=== PATIENT | male | born 1935 | race Caucasian/White ===

== ENCOUNTER 2022-09-22 17:44 | Observation (INO) ==
--- NOTE | 2022-09-22 18:59 | Emergency Department Note ---
Impression & Plan Acute lower GI bleeding, Anemia ED Provider Note NAME: TOMAS STAPLES AGE: 87 SEX: M : 1935 ARRIVES VIA: Walk-In INFORMANT: Patient, ED PROVIDER(S): Stefan Mackenzie DO CHIEF COMPLAINT: Rectal bleeding HPI: The patient is an 87-year-old male who presented to the emergency department for rectal bleeding. He describes his rectal bleeding is grossly bloody and watery. He has had no fever. He denies having any nausea or v omiting. He does complain of some vague abdominal pain. The patient has a history of no previous episodes in the past. He does not take blood thinners. He has had no recent trauma or traveling. The patient states he has been compliant with his outpatient medications. He is traveling from outside the area and has not recently been seen by his family doctor. ROS: See above HPI for pertinent positives & negatives. A total of 10 systems reviewed and were otherwise negative. PAST MEDICAL HISTORY: See Below PAST SURGICAL HISTORY: See Below FAMILY HISTORY: See Below SOCIAL HISTORY: See Below HOME MEDICATIONS: See Below ALLERGIES: See Below VITALS: See Below PHYSICAL EXAMINATION: GENERAL: Patient is awake alert in no acute distress patient is resting comfortably and showing no signs of anxiety EYES: The conjunctivae are clear. The pupils are round and reactive. EARS, NOSE, MOUTH AND THROAT: The nose is without any evidence of any deformity. Mucous membranes are moist. Tongue is midline. NECK: The neck is nontender and supple. RESPIRATORY: Normal respiratory effort is noted there is no evidence of wheezing rhonchi or rales CARDIOVASCULAR: Regular rate and rhythm noted there no murmurs rubs or gallops normal S1 normal S2. GASTROINTESTINAL: The abdomen is soft. Abdomen is nontender. MUSCULOSKELETAL/EXTREMITIES: There is no evidence of gross deformity full range of motion is noted in the hips and shoulders. SKIN: There is no obvious evidence of any rash. There are no petechiae, pallor or cyanosis noted. NEUROLOGIC: Patient is awake alert and oriented x3 MEDICAL DECISION MAKING: The patient is an 87-year-old male who presented to the emergency department for an evaluation of lower GI bleeding. The patient was noted to have loose bowel movements which had gross blood per rectum. I discussed patient's laboratory and radiographic studies with him. Ultimately his stool was positive for E. coli. [facility] have agreed to evaluate the patient in the emergency department for further management and disposition. Triage Nursing notes reviewed. Prior medical records reviewed Vital Signs: reviewed and remarkable for no significant abnormalities Differential diagnosis: Diverticulosis, AVM, coagulopathy, colitis, inflammatory bowel disease, malignancy, Susan-Underwood tear, esophagitis, peptic ulcer disease, variceal bleed, gastritis, epistaxis, fissure, hemorrhoids, as well as other pathologies. ER treatment provided: See below Diagnostics interpreted by me: ECG: EKG was obtained in the emergency department. My interpretation is normal sinus rhythm at 69 bpm. No PVCs were noted. Right bundle-branch block pattern was noted. No previous tracing was available. Cardiac Monitoring: An order was placed for continuous cardiac monitoring. The monitor shows a rate of 78 bpm with sinus rhythm Laboratory studies: As stated above and show below. Imaging studies: See below Consultation(s): I discussed this case with Dr. Boland who is [facility]. Past Med/Surg History Medical History High cholesterol PVCs (premature ventricular contractions) Social History Smoking Status: Former smoker Second Hand Exposure: No; Do You Dip or Chew Tobacco: No; Tobacco Cessation Education Requested by Patient: No Hx Alcohol Use: No Hx Substance Use: No Preferred Language: Kittitian Surgical Supervisor Required: No Beliefs That Will Affect Care: None Current Living Situation: Alone Other Information That Helps Us Care for You: No Feels Safe at Home: Yes Safety Concerns: Feels Safe At This Time Assistive Devices: Other Assistive Devices Comment: partial Allergies Allergies Allergy/AdvReac Type Severity Reaction Status Date / Time No Known Allergies Allergy Unverified 09/22/22 21:26 Home Meds Home Medications Medication Instructions Recorded Confirmed ascorbic acid (vitamin C) 500 mg 500 mg PO DAILY 09/22/22 09/22/22 tablet aspirin 325 mg tablet 325 mg PO DAILY 09/22/22 09/22/22 atorvastatin 40 mg tablet 40 mg PO DAILY 09/22/22 09/22/22 metoprolol succinate 25 mg 25 mg PO DAILY 09/22/22 09/22/22 tablet,extended release 24 hr multivitamin 1 tab PO DAILY 09/22/22 09/22/22 omega 1-wcd-otc-fish oil 1,000 mg 1 cap PO DAILY 09/22/22 09/22/22 (120 mg-180 mg) capsule (Fish Oil) Results & Data (ED) Vital Signs Vital Signs - 24 hr 09/22/22 17:55 09/22/22 18:18 09/22/22 18:31 Temperature 36.6 C Temperature Source Temporal Artery Scan Pulse Rate 87 Pulse Rate [Finger] 67 Respiratory Rate 18 18 Blood Pressure 124/87 Blood Pressure [Left Arm] 142/78 H Blood Pressure Mean 99 Blood Pressure Mean [Left Arm] 99 Pulse Oximetry 97 97 99 Oxygen Delivery Method Room Air Room Air Sepsis Recent Fever Within 48 Hours No Sepsis New/Unexplained Change in Mental Status No Sepsis Action Taken by Nursing No Action Required 09/22/22 19:52 09/22/22 21:00 Temperature Temperature Source Pulse Rate Pulse Rate [Finger] 66 66 Respiratory Rate 18 20 Blood Pressure Blood Pressure [Left Arm] 130/77 114/72 Blood Pressure Mean Blood Pressure Mean [Left Arm] 94 86 Pulse Oximetry 96 96 Oxygen Delivery Method Room Air Room Air Sepsis Recent Fever Within 48 Hours Sepsis New/Unexplained Change in Mental Status Sepsis Action Taken by Usp Medications Current Medication List: was personally reviewed by me Laboratory Data Attestation: I reviewed the patient's lab results. Result diagrams: 09/22/22 16:09 09/22/22 16:09 Lab Results 09/22/22 09/22/22 09/22/22 Range/Units 16:09 16:09 16:09 WBC 12.17 H (4.8-10.8) K/ul RBC 3.54 L (4.63-6.08) M/uL Hgb 11.6 L (14.0-18.0) g/dl Hct 33.8 L (40.1-51.0) % MCV 95.5 (80.0-100.0) fL MCH 32.8 (25.0-34.0) pg MCHC 34.3 (32.0-36.0) g/dL RDW Std Deviation 46.0 (36.4-46.3) fL RDW Coeff of Bonifacio 13.2 (11.5-14.5) % Plt Count 298 (130-400) K/uL MPV 10.7 (9.4-12.4) fL Immature Gran % (Auto) 0.3 % Neut % (Auto) 69.8 % Lymph % (Auto) 18.1 % [place] % (Auto) 9.4 % Eos % (Auto) 1.8 % Baso % (Auto) 0.6 % Neut # (Auto) 8.50 H (1.4-6.5) K/uL Lymph # (Auto) 2.20 (1.2-3.4) K/uL [place] # (Auto) 1.14 H (0.24-0.82) K/uL Eos # (Auto) 0.22 (0-0.50) K/uL Baso # (Auto) 0.07 (0-0.2) K/uL Immature Gran # (Auto) 0.04 H (0.00-0.02) K/uL PT 11.0 (9.0-12.0) Seconds INR 1.0 (0.9-1.1) APTT 25.4 (21.0-31.0) Seconds PTT Ratio 0.9 Sodium 142 (136-145) mmol/L Potassium 4.0 (3.5-5.1) mmol/L Chloride 107 (98-107) mmol/L Carbon Dioxide 27 (21-32) mmol/L Anion Gap 8 (3-11) BUN 20 (6-23) mg/dl Creatinine 1.06 (0.6-1.4) mg/dl Est Cr Clr Drug Dosing 47.2 ml/min Est GFR ( Amer) 71.8 ml/min Est GFR (Non-Af Amer) 61.9 ml/min BUN/Creatinine Ratio 18.9 (10-20) Glucose 96 (70-99(Fasting)) mg/dl Calcium 9.7 (8.5-10.1) mg/dl Total Bilirubin 0.5 (0.2-1.0) mg/dl AST 13 (13-39) U/L ALT 10 (7-52) U/L Alkaline Phosphatase 89 (34-104) U/L Troponin I High Sens 11.7 (0-20) pg/ml Total Protein 6.8 (6.0-8.3) gm/dl Albumin 4.2 (3.4-5.0) gm/dl Globulin 2.6 (2.5-4.0) gm/dl Albumin/Globulin Ratio 1.6 (0.9-2) Lipase 14 (11-82) U/L Urine Color Urine Appearance (Clear) Urine pH (4.5-7.5) Ur Specific Apex (1.000-1.030) Urine Protein (Negative) Urine Glucose (UA) (Negative) Urine Ketones (Negative) Urine Blood (Negative) Urine Nitrite (Negative) Urine Bilirubin (Negative) Urine Urobilinogen (Negative) Ur Leukocyte Esterase (Negative) Urine WBC (Auto) (0-5) /hpf Urine RBC (Auto) (0-4) /hpf U Hyaline Cast (Auto) (0-5) /lpf U Epithel Cells (Auto) (0-5) /lpf Urine Bacteria (Auto) (Negative) Stl C. cayetanensis PCR (NotDetected) Stool Rotavirus A PCR (NotDetected) Stl Adenov F 40/41 PCR (NotDetected) Stool Astrovirus (PCR) (NotDetected) Stool Campylobacter PCR (NotDetected) Stl C. diff Tox A/B PCR (NotDetected) Stool Cryptosporidium PCR (NotDetected) Stl E.coli Shiga Tox PCR (NotDetected) Stl Enterotoxigenic E PCR (NotDetected) Stool EPEC (PCR) (NotDetected) Stool EAEC (PCR) (NotDetected) Stl E. histolytica PCR (NotDetected) Stool Giardia Lamblia PCR (NotDetected) Stool Salmonella PCR (NotDetected) Stool Sapovirus (PCR) (NotDetected) Stl P. shigelloides PCR (NotDetected) Stl Shigella/EIEC PCR (NotDetected) St Y.enterocolitica PCR (NotDetected) Stool Vibrio (PCR) (NotDetected) Stl Vibrio cholerae PCR (NotDetected) Stl Norovirus GI/GII PCR (NotDetected) SARS-CoV-2, RNA, NAAT (NEGATIVE) Blood Type Antibody Screen 09/22/22 09/22/22 09/22/22 Range/Units 18:16 18:18 18:18 WBC (4.8-10.8) K/ul RBC (4.63-6.08) M/uL Hgb (14.0-18.0) g/dl Hct (40.1-51.0) % MCV (80.0-100.0) fL MCH (25.0-34.0) pg MCHC (32.0-36.0) g/dL RDW Std Deviation (36.4-46.3) fL RDW Coeff of Bonifacio (11.5-14.5) % Plt Count (130-400) K/uL MPV (9.4-12.4) fL Immature Gran % (Auto) % Neut % (Auto) % Lymph % (Auto) % [place] % (Auto) % Eos % (Auto) % Baso % (Auto) % Neut # (Auto) (1.4-6.5) K/uL Lymph # (Auto) (1.2-3.4) K/uL [place] # (Auto) (0.24-0.82) K/uL Eos # (Auto) (0-0.50) K/uL Baso # (Auto) (0-0.2) K/uL Immature Gran # (Auto) (0.00-0.02) K/uL PT (9.0-12.0) Seconds INR (0.9-1.1) APTT (21.0-31.0) Seconds PTT Ratio Sodium (136-145) mmol/L Potassium (3.5-5.1) mmol/L Chloride (98-107) mmol/L Carbon Dioxide (21-32) mmol/L Anion Gap (3-11) BUN (6-23) mg/dl Creatinine (0.6-1.4) mg/dl Est Cr Clr Drug Dosing ml/min Est GFR ( Amer) ml/min Est GFR (Non-Af Amer) ml/min BUN/Creatinine Ratio (10-20) Glucose (70-99(Fasting)) mg/dl Calcium (8.5-10.1) mg/dl Total Bilirubin (0.2-1.0) mg/dl AST (13-39) U/L ALT (7-52) U/L Alkaline Phosphatase (34-104) U/L Troponin I High Sens (0-20) pg/ml Total Protein (6.0-8.3) gm/dl Albumin (3.4-5.0) gm/dl Globulin (2.5-4.0) gm/dl Albumin/Globulin Ratio (0.9-2) Lipase (11-82) U/L Urine Color Yellow Urine Appearance Clear (Clear) Urine pH 5.0 (4.5-7.5) Ur Specific Apex 1.021 (1.000-1.030) Urine Protein Negative (Negative) Urine Glucose (UA) Negative (Negative) Urine Ketones Trace H (Negative) Urine Blood Negative (Negative) Urine Nitrite Negative (Negative) Urine Bilirubin Negative (Negative) Urine Urobilinogen Negative (Negative) Ur Leukocyte Esterase 1+ H (Negative) Urine WBC (Auto) 5-10 H (0-5) /hpf Urine RBC (Auto) 0-4 (0-4) /hpf U Hyaline Cast (Auto) 1-5 (0-5) /lpf U Epithel Cells (Auto) 20-30 H (0-5) /lpf Urine Bacteria (Auto) Negative (Negative) Stl C. cayetanensis PCR Not Detected (NotDetected) Stool Rotavirus A PCR Not Detected (NotDetected) Stl Adenov F 40/41 PCR Not Detected (NotDetected) Stool Astrovirus (PCR) Not Detected (NotDetected) Stool Campylobacter PCR Not Detected (NotDetected) Stl C. diff Tox A/B PCR Not Detected (NotDetected) Stool Cryptosporidium PCR Not Detected (NotDetected) Stl E.coli Shiga Tox PCR Not Detected (NotDetected) Stl Enterotoxigenic E PCR Not Detected (NotDetected) Stool EPEC (PCR) DETECTED A* (NotDetected) Stool EAEC (PCR) Not Detected (NotDetected) Stl E. histolytica PCR Not Detected (NotDetected) Stool Giardia Lamblia PCR Not Detected (NotDetected) Stool Salmonella PCR Not Detected (NotDetected) Stool Sapovirus (PCR) Not Detected (NotDetected) Stl P. shigelloides PCR Not Detected (NotDetected) Stl Shigella/EIEC PCR Not Detected (NotDetected) St Y.enterocolitica PCR Not Detected (NotDetected) Stool Vibrio (PCR) Not Detected (NotDetected) Stl Vibrio cholerae PCR Not Detected (NotDetected) Stl Norovirus GI/GII PCR Not Detected (NotDetected) SARS-CoV-2, RNA, NAAT (NEGATIVE) Blood Type O Positive Antibody Screen NEGATIVE 09/22/22 Range/Units 18:37 WBC (4.8-10.8) K/ul RBC (4.63-6.08) M/uL Hgb (14.0-18.0) g/dl Hct (40.1-51.0) % MCV (80.0-100.0) fL MCH (25.0-34.0) pg MCHC (32.0-36.0) g/dL RDW Std Deviation (36.4-46.3) fL RDW Coeff of Bonifacio (11.5-14.5) % Plt Count (130-400) K/uL MPV (9.4-12.4) fL Immature Gran % (Auto) % Neut % (Auto) % Lymph % (Auto) % [place] % (Auto) % Eos % (Auto) % Baso % (Auto) % Neut # (Auto) (1.4-6.5) K/uL Lymph # (Auto) (1.2-3.4) K/uL [place] # (Auto) (0.24-0.82) K/uL Eos # (Auto) (0-0.50) K/uL Baso # (Auto) (0-0.2) K/uL Immature Gran # (Auto) (0.00-0.02) K/uL PT (9.0-12.0) Seconds INR (0.9-1.1) APTT (21.0-31.0) Seconds PTT Ratio Sodium (136-145) mmol/L Potassium (3.5-5.1) mmol/L Chloride (98-107) mmol/L Carbon Dioxide (21-32) mmol/L Anion Gap (3-11) BUN (6-23) mg/dl Creatinine (0.6-1.4) mg/dl Est Cr Clr Drug Dosing ml/min Est GFR ( Amer) ml/min Est GFR (Non-Af Amer) ml/min BUN/Creatinine Ratio (10-20) Glucose (70-99(Fasting)) mg/dl Calcium (8.5-10.1) mg/dl Total Bilirubin (0.2-1.0) mg/dl AST (13-39) U/L ALT (7-52) U/L Alkaline Phosphatase (34-104) U/L Troponin I High Sens (0-20) pg/ml Total Protein (6.0-8.3) gm/dl Albumin (3.4-5.0) gm/dl Globulin (2.5-4.0) gm/dl Albumin/Globulin Ratio (0.9-2) Lipase (11-82) U/L Urine Color Urine Appearance (Clear) Urine pH (4.5-7.5) Ur Specific Apex (1.000-1.030) Urine Protein (Negative) Urine Glucose (UA) (Negative) Urine Ketones (Negative) Urine Blood (Negative) Urine Nitrite (Negative) Urine Bilirubin (Negative) Urine Urobilinogen (Negative) Ur Leukocyte Esterase (Negative) Urine WBC (Auto) (0-5) /hpf Urine RBC (Auto) (0-4) /hpf U Hyaline Cast (Auto) (0-5) /lpf U Epithel Cells (Auto) (0-5) /lpf Urine Bacteria (Auto) (Negative) Stl C. cayetanensis PCR (NotDetected) Stool Rotavirus A PCR (NotDetected) Stl Adenov F 40/41 PCR (NotDetected) Stool Astrovirus (PCR) (NotDetected) Stool Campylobacter PCR (NotDetected) Stl C. diff Tox A/B PCR (NotDetected) Stool Cryptosporidium PCR (NotDetected) Stl E.coli Shiga Tox PCR (NotDetected) Stl Enterotoxigenic E PCR (NotDetected) Stool EPEC (PCR) (NotDetected) Stool EAEC (PCR) (NotDetected) Stl E. histolytica PCR (NotDetected) Stool Giardia Lamblia PCR (NotDetected) Stool Salmonella PCR (NotDetected) Stool Sapovirus (PCR) (NotDetected) Stl P. shigelloides PCR (NotDetected) Stl Shigella/EIEC PCR (NotDetected) St Y.enterocolitica PCR (NotDetected) Stool Vibrio (PCR) (NotDetected) Stl Vibrio cholerae PCR (NotDetected) Stl Norovirus GI/GII PCR (NotDetected) SARS-CoV-2, RNA, NAAT NEGATIVE (NEGATIVE) Blood Type Antibody Screen Administered Medications Dextrose/Sodium Chloride (D5w And 1/2nss) 1,000 mls @ 100 mls/hr IV .Q10H DAVIE Stop: 10/22/22 23:08 Last Admin: 09/22/22 23:42 Dose: 100 mls/hr Documented By: JEANETTE Discontinued Medications Azithromycin (Azithromycin 250 Mg Tab) 500 mg PO NOW ONE Stop: 09/22/22 23:10 Last Admin: 09/22/22 23:42 Dose: 500 mg Documented By: JEANETTE Imaging Data Radiologist's Impression: Chest X-Ray 09/22/22 18:05 XR chest 1V portable CLINICAL HISTORY: GIB TECHNIQUE: Single frontal radiograph of the chest was obtained. Comparison: None available at the time of this dictation. FINDINGS: Median sternotomy wires are unchanged. Calcified aortic knob is seen. Mediastinal and hilar densities are seen representing calcified lymph nodes. Bronchial wall thickening is noted. No evidence of pleural effusion or pneumothorax. IMPRESSION: Bronchial wall thickening is seen which may represent bronchitis. No pneumonia or other acute abnormalities. ACT 112: Negative or not required by law. Electronically signed by: Naif White M.D. 09/22/2022 8:11 PM Discharge Plan Visit Data Chief Complaint: Rectal Bleed Stated Complaint: RECTAL BLEED ED Provider: Stefan Mackenzie Discharge Problem: Acute lower GI bleeding, Anemia Patient Disposition: Admitted As Inpatient Discharge Instructions Interventions: ED Discharge Assessment Last Done: 09/22/22 22:37 : Anemia Qualifiers: Anemia type: unspecified type Qualified Code(s): D64.9 - Anemia, unspecified
[2022-09-22 19:11] LABS: Basophils # (auto) 0.07 K/uL (0-0.2); Basophils % (auto) 0.6 %; Eosinophils # (auto) 0.22 K/uL (0-0.50); Eosinophils % (auto) 1.8 %; Hematocrit (blood only) 33.8 % (40.1-51.0); Hemoglobin 11.6 g/dl (14.0-18.0); Immature Granulocytes # (auto) 0.04 K/uL (0.00-0.02); Immature Granulocytes % (auto) 0.3 %; Lymphocytes % (auto) 18.1 %; Mean Corpuscular Hemoglobin 32.8 pg (25.0-34.0); Mean Corpuscular Hgb Conc 34.3 g/dL (32.0-36.0); Mean Corpuscular Volume 95.5 fL (80.0-100.0); Mean Platelet Volume 10.7 fL (9.4-12.4); Monocytes # (auto) 1.14 K/uL (0.24-0.82); Monocytes % (auto) 9.4 %; Neutrophils % (auto) 69.8 %; Platelet Count 298 K/uL (130-400); RDW Coefficient of Variation 13.2 % (11.5-14.5); Red Blood Count 3.54 M/uL (4.63-6.08); White Blood Count 12.17 K/ul (4.8-10.8)
[2022-09-22 19:14] LABS: Appearance Urine Clear (Clear); Bacteria Urine Automated Negative (Negative); Bilirubin Urine Negative (Negative); Blood Urine Negative (Negative); Color Urine Yellow; Epithelial Cell Urine Auto 20-30 /lpf (0-5); Glucose Urine UA Negative (Negative); Ketones Urine Trace (Negative); Leukocyte Esterase Urine 1+ (Negative); Nitrite Urine Negative (Negative); Protein Urine Negative (Negative); RBC Urine Automated 0-4 /hpf (0-4); Specific Gravity Urine 1.021 (1.000-1.030); Urobilinogen Urine Negative (Negative)
[2022-09-22 19:23] LABS: Partial Thromboplastin Ratio 0.9; Partial Thromboplastin Time 25.4 Seconds (21.0-31.0)
[2022-09-22 19:41] LABS: Troponin I High Sensitivity 11.7 pg/ml (0-20)
[2022-09-22 19:42] LABS: Albumin Globulin Ratio 1.6 (0.9-2); Albumin Level 4.2 gm/dl (3.4-5.0); BUN Creatinine Ratio 18.9 (10-20); Bilirubin,Total 0.5 mg/dl (0.2-1.0); Calcium 9.7 mg/dl (8.5-10.1); Creatinine Clr Calc Pharmacy 47.2 ml/min; Est GFR (African American) 71.8 ml/min; Est GFR (Non-African American) 61.9 ml/min; Globulin 2.6 gm/dl (2.5-4.0); Total Protein 6.8 gm/dl (6.0-8.3)
--- NOTE | 2022-09-22 20:13 | XRay Report ---
XR chest 1V portable CLINICAL HISTORY: GIB TECHNIQUE: Single frontal radiograph of the chest was obtained. Comparison: None available at the time of this dictation. FINDINGS: Median sternotomy wires are unchanged. Calcified aortic knob is seen. Mediastinal and hilar densities are seen representing calcified lymph nodes. Bronchial wall thickening is noted. No evidence of pleu ral effusion or pneumothorax. IMPRESSION: Bronchial wall thickening is seen which may represent bronchitis. No pneumonia or other acute abnorma lities. ACT 112: Negative or not required by law. Electronically signed by: Naif White M.D. 09/22/2022 8:11 PM
[2022-09-22 20:29] LABS: Adenovirus F 40/41 PCR Not Detected (NotDetected); Astrovirus PCR Not Detected (NotDetected); Campylobacter PCR Not Detected (NotDetected); Clostridium diff Toxin A/B PCR Not Detected (NotDetected); Cryptosporidium PCR Not Detected (NotDetected); Cyclospora cayetanensis PCR Not Detected (NotDetected); Entamoeba histolytica PCR Not Detected (NotDetected); Enteroaggregative E.coli(EAEC) Not Detected (NotDetected); Enterotoxigenic E.coli (ETEC) Not Detected (NotDetected); Giardia lamblia PCR Not Detected (NotDetected); Norovirus GI/GII PCR Not Detected (NotDetected); Plesiomonas shigelloides PCR Not Detected (NotDetected); Rotavirus A PCR Not Detected (NotDetected); Salmonella PCR Not Detected (NotDetected); Sapovirus PCR Not Detected (NotDetected); Shiga-like Toxin E.coli (STEC) Not Detected (NotDetected); Shigella/Enteroinvasive E.coli Not Detected (NotDetected); Vibrio cholerae PCR Not Detected (NotDetected); Vibrio species PCR Not Detected (NotDetected); Yersinia enterocolitica PCR Not Detected (NotDetected)
[2022-09-22 20:35] LABS: Enteropathogenic E.coli (EPEC) DETECTED (NotDetected)
[2022-09-22] MEDS ORDERED: ACETAMINOPHEN 325 MG TAB PO PRN (23:09)
[2022-09-22] MEDS ORDERED: NITROGLYCERIN SL 0.4 MG/TAB TAB SL PRN (23:09)
[2022-09-22] MEDS ORDERED: AZITHROMYCIN 250 MG TAB PO ONE (23:09)
[2022-09-22] MEDS: D5W AND 1/2NSS 1,000 ML IV SCH (23:42)
--- NOTE | 2022-09-22 23:53 | History and Physical Report ---
DATE OF ADMISSION: 09/22/2022. CHIEF COMPLAINT: Rectal bleed and diarrhea. HISTORY OF PRESENT ILLNESS: An 87-year-old male with past medical history significant for hypertension, hyperlipidemia, history of status post bioprosthetic aortic valve replacement, presents with rectal bleed. 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 He had so far four bloody bowel movements. No abdominal pain. Does not feel dizzy. No nausea, no vomiting, no fevers. Currently, resting comfortably, hemodynamically stable. No chest pain, no shortness of breath, no cough, no runny nose. Some scratchy throat. No headache, no blurred visions, no nausea. Somewhat hard of hearing. ALLERGIES: No known drug allergies. PAST MEDICAL HISTORY: As mentioned above. PAST SURGICAL HISTORY: Bioprosthetic aortic valve replacement. MEDICATIONS: The patient is on vitamin C 500 mg p.o. daily, aspirin 325 mg p.o. daily, atorvastatin 40 mg p.o. daily, metoprolol succinate 25 mg p.o. daily, multivitamins 1 tablet p.o. daily, fish oil 1 capsule p.o. daily. FAMILY HISTORY: Father when patient is of 10yrs probably from heart disease; mother had severe arthritis. SOCIAL HISTORY: No smoking. No alcohol. REVIEW OF SYSTEMS: As per HPI. Rest of the review of systems is negative. PHYSICAL EXAMINATION: GENERAL: The patient is of moderate build, not in acute distress. VITAL SIGNS: Temperature 36.6, pulse 66, respiratory rate 20, blood pressure 114/72, oxygen 96% on room air. HEENT: Pupils equal, round and reactive to light. Oral mucosa moist. NECK: No JVD, no neck masses. CARDIOVASCULAR: S1 and S2 heard. Regular rate and rhythm. No murmur, no gallop. RESPIRATORY SYSTEM: Normal AP diameter. No accessory muscle use. No wheezing, no crackles. ABDOMEN: Soft, bowel sounds present, nontender, no distention. CENTRAL NERVOUS SYSTEM: Cranial nerves II-XII grossly intact, nonfocal. EXTREMITIES: No edema, no erythema. LABORATORY DATA: WBC 12.1, hemoglobin 11.6, hematocrit 33.8, platelets 298. PT 11, INR 1, APTT 25.4. Sodium 142, potassium 4, chloride 107, bicarbonate 27, BUN 20, creatinine 1.06, serum glucose 96, calcium 9.7, total bilirubin 0.5, AST 13, ALT 10, alkaline phosphatase 89. Troponin I high sensitivity 11.7. Lipase 14. Urinalysis, +1 leukocyte esterase, urine bacteria negative. Stool sample, stool EPIC PCR came back positive. COVID negative. IMAGING DATA: Chest x-ray, bronchial wall thickening seen, which may represent bronchitis. No pneumonia or other abnormalities seen. EKG: Normal sinus rhythm, right bundle-branch block at a rate of 69, no previous EKGs available. ASSESSMENT AND PLAN: This is an 87-year-old male who presents with rectal bleed. 1. Rectal bleed and diarrhea: Four episodes of bloody diarrhea, blood in the stools. From the [place] area, he ate food from a restaurant yesterday. Stool PCR positive for enteropathogenic E. coli. Since he is having bloody diarrhea, we can treat with antibiotics. will treat with azithromycin 500 mg for 3 days. Will follow hemoglobin and hematocrit. GI consulted. Monitor in the [employer] tele. On IV fluids. Will keep him n.p.o. now. Blood consent obtained. Hold his aspirin. 2. History of hyperlipidemia: Continue statin. 3. History of status post bioprosthetic aortic valve. 4. History of hypertension: Continue metoprolol. 5. UTI? Follow cx. 6. Deep venous thrombosis prophylaxis: Sequential compression devices. DISPOSITION: Closely monitor in [facility]. PT/OT prior to discharge. Social service to help with discharge planning. Level 1 full code. Job ID: [id number] [facility]
[2022-09-23 06:50] LABS: Basophils # (auto) 0.04 K/uL (0-0.2); Basophils % (auto) 0.6 %; Eosinophils # (auto) 0.25 K/uL (0-0.50); Eosinophils % (auto) 3.5 %; Hematocrit (blood only) 26.4 % (40.1-51.0); Hematocrit (blood only) 26.5 % (40.1-51.0); Hemoglobin 8.9 g/dl (14.0-18.0); Immature Granulocytes # (auto) 0.01 K/uL (0.00-0.02); Immature Granulocytes % (auto) 0.1 %; Lymphocytes # (auto) 1.14 K/uL (1.2-3.4); Lymphocytes % (auto) 16.1 %; Mean Corpuscular Hemoglobin 31.6 pg (25.0-34.0); Mean Corpuscular Hgb Conc 33.6 g/dL (32.0-36.0); Mean Platelet Volume 10.8 fL (9.4-12.4); Monocytes # (auto) 0.71 K/uL (0.24-0.82); Neutrophils # (auto) 4.93 K/uL (1.4-6.5); Neutrophils % (auto) 69.7 %; Platelet Count 235 K/uL (130-400); RDW Coefficient of Variation 13.2 % (11.5-14.5); RDW Standard Deviation 45.4 fL (36.4-46.3); Red Blood Count 2.82 M/uL (4.63-6.08); White Blood Count 7.08 K/ul (4.8-10.8)
[2022-09-23 07:16] LABS: Calcium 8.5 mg/dl (8.5-10.1); Creatinine Clr Calc Pharmacy 48.5 ml/min; Est GFR (Non-African American) 66.4 ml/min; Magnesium 1.9 mg/dl (1.7-2.4); Potassium 3.8 mmol/L (3.5-5.1)
[2022-09-23] MEDS: MULTIVITAMIN TAB PO SCH (07:54)
[2022-09-23] MEDS: ASCORBIC ACID 500 MG TAB PO SCH (07:54)
[2022-09-23] MEDS: ATORVASTATIN 40 MG TAB PO SCH (07:55)
[2022-09-23] MEDS: METOPROLOL SUCC 25MG EXT REL TAB PO SCH (07:55)
[2022-09-23] MEDS: D5W AND 1/2NSS 1,000 ML IV SCH (08:46)
--- NOTE | 2022-09-23 11:06 | Gastrointestinal Consultation ---
Date of Consultation September 23, 2022 Assessment & Plan (1) Acute lower GI bleeding: Most likely diverticular bleed. It seems to have stopped. Plan Clear liquids p.o. May advance after lunchtime if no further bleeding. Suggest observing overnight. If no further bleeding, then would not go forward with inpatient colonoscopy. Instead patient will follow up with his GI in the [facility] Supervising Physician Co-Signing Physician Notes Attending attestation I have seen, examined this patient, and agree with the findings and above by our mid-level provider LIZET Mccollum, with the following additions: Discussed colonoscopy, he does not wish to pursue. Would like to go home, negotiated to stay for observation and f/u with care team close to home History of similar presentation with diverticular etiology No signs of acute ongoing bleeding VSS History of Present Illness Reason for Consultation: Rectal bleeding Requesting Physician: Dr. Boland Attending Physician: Cheryl Tierney MD History of Present Illness Mr. Johnnie Davila is an 87 yr old male w a hx of HTN, hyperlipidemia, biosporsthetic aortic valve replacement. He lives in the [facility] and was visiting friends in [place] when he experienced sudden onset of painless rectal bleeding last evening. He believes he passed one very bloody dark red bowel movement prior to arrival here and then 3 in the emergency department and 1 on arrival up in the ICU. He has since then passed gas and not had any bleeding with it. On arrival, hemoglobin 11 then this morning 8.9. He denies any nausea vomiting abdominal pain dizziness weakness fevers chills sweats. He is hemodynamically stable, awake and alert and actually asks if he can go home today. Allergies Allergy/AdvReac Type Severity Reaction Status Date / Time No Known Allergies Allergy Unverified 09/22/22 21:26 Home Medications Medication Instructions Recorded Confirmed Type ascorbic acid (vitamin C) 500 mg 500 mg PO DAILY 09/22/22 09/22/22 History tablet aspirin 325 mg tablet 325 mg PO DAILY 09/22/22 09/22/22 History atorvastatin 40 mg tablet 40 mg PO DAILY 09/22/22 09/22/22 History metoprolol succinate 25 mg 25 mg PO DAILY 09/22/22 09/22/22 History tablet,extended release 24 hr multivitamin 1 tab PO DAILY 09/22/22 09/22/22 History omega 4-wka-kdn-fish oil 1,000 mg 1 cap PO DAILY 09/22/22 09/22/22 History (120 mg-180 mg) capsule (Fish Oil) Patient History Medical History High cholesterol PVCs (premature ventricular contractions) Social History Smoking Status: Former smoker Second Hand Exposure: No; Do You Dip or Chew Tobacco: No; Tobacco Cessation Education Requested by Patient: No Hx Alcohol Use: No Hx Substance Use: No Preferred Language: Tajik Chef Saucier Required: No Beliefs That Will Affect Care: None Current Living Situation: Alone Other Information That Helps Us Care for You: No Feels Safe at Home: Yes Safety Concerns: Feels Safe At This Time Assistive Devices: Other Assistive Devices Comment: partial Review of Systems Review of Systems: ROS: Gen: Denies weakness, fevers, weight loss Eyes: No eye redness, or pain, no recent vision changes Resp: No SOB, no cough Cardio: No palpitations/irregular beats, no chest pain GI: As per HPI : Denies pain on urination Skin: No jaundice, itching or new rashes Physical Exam Constitutional: WD/WN, vitals as above Eyes: PERRL, conjunctivae normal, anicteric sclerae ENMT: external ear and nose normal, oropharynx normal Neck: trachea midline, no thyromegaly Respiratory: normal respiratory effort, lungs clear to auscultation Cardiovascular: Rate/Rhythm: regular rate and regular rhythm Heart Sounds: + murmur (2/6 systolic) Gastrointestinal (Abdomen): normal bowel sounds, soft, nontender, no hepatosplenomegaly Musculoskeletal: no cyanosis or clubbing, extremities motor strength 5/5 Skin: no rashes, warm and dry Neurologic: PERRL, EOMI, accommodation nl, no face palsy, no dysarthria Psychiatric: A+Ox3, euthymic affect Results & Data ([facility]) Vital Signs (Past 12 Hours) Vital Signs Temp Pulse Pulse Resp BP Pulse Ox O2 Del Method 09/23/22 09:31 106 H 09/23/22 07:25 36.6 C 64 19 108/60 93 Room Air 09/23/22 03:40 36.6 C 67 18 100/53 L 96 Room Air 09/22/22 23:15 77 09/22/22 23:11 36.5 C 78 17 129/59 L 97 Room Air Laboratory Results WBC 7, Hb 8.9, HCT 26.5, PLT S2 35, INR 1.0, NA 142, K3.8, CL 28, CO2 5, BUN 20, CR 1, glucose 117 Diagnostic Findings CXR bronchial wall thickening, no pneumonia
--- NOTE | 2022-09-23 11:11 | Electrocardiogram Report ---
Test Reason : Blood Pressure : / mmHG Vent. Rate : 069 BPM Atrial Rate : 069 BPM P-R Int : 208 ms QRS Dur : 134 ms QT Int : 442 ms P-R-T Axes : 095 -14 057 degrees QTc Int : 473 ms Normal sinus rhythm with 1st degree AV block Right bundle branch block Abnormal ECG No previous ECGs available Confirmed by Hai Kendall ([id number]) on 09/23/2022 11:10:26 AM Referred By: REFERRED SELF Confirmed By:Xander Kendall
--- NOTE | 2022-09-23 11:15 | Hospitalist Progress Note ---
Date of Service September 23, 2022 Assessment & Plan (1) Acute lower GI bleeding: (2) Anemia: Plan: Patient presented with acute onset rectal bleeding. Had prior to presentation, 3 in the ER. Hemoglobin dropped from 11.6-8.9. Monitor hemoglobin. GI evaluation noted. Continue Plavix for now. If no bleeding may advance diet later in the day and observe overnight. If more bleeding, will consider inpatient colonoscopy. Patient reports history of diverticulitis in the past. Cannot rule out diverticular bleeding. Stool PCR was positive for enteropathogenic E. coli. Currently on azithromycin. Hold home aspirin at this time. Admission and Anticipated Discharge Date Admission Date: September 22, 2022 Subjective Patient seen and examined. Reports bowel movement this morning was pinkish Last bloody BM were yesterday Denied any abdominal pain, nausea, vomiting Denied any fevers, chills Denied any dizziness, palpitation Denied any cough, chest pain, shortness of breath Denied any dysuria, frequency or urgency or hematuria Physical Exam Constitutional: + well hydrated; no acute distress Eyes: PERRL, conjunctivae normal, anicteric sclerae ENMT: external ear and nose normal, oropharynx normal Respiratory: normal respiratory effort, lungs clear to auscultation Cardiovascular: Rate/Rhythm: regular rate and regular rhythm S1-S2 Gastrointestinal (Abdomen): normal bowel sounds, soft, nontender, no hepatosplenomegaly Musculoskeletal: no cyanosis or clubbing, extremities motor strength 5/5 Neurologic: PERRL, EOMI, accommodation nl, no face palsy, no dysarthria Psychiatric: A+Ox3, euthymic affect Results & Data Results & Data ([facility]) Vital Signs (Past 12 Hours) Vital Signs Temp Pulse Pulse Resp BP Pulse Ox O2 Del Method 09/23/22 09:31 106 H 09/23/22 07:25 36.6 C 64 19 108/60 93 Room Air 09/23/22 03:40 36.6 C 67 18 100/53 L 96 Room Air (1) Anemia Anemia type: unspecified type Qualified Code(s): D64.9 - Anemia, unspecified
[2022-09-23 11:55] LABS: Hematocrit (blood only) 26.7 % (40.1-51.0)
[2022-09-23 16:59] LABS: Hematocrit (blood only) 27.8 % (40.1-51.0); Hemoglobin 9.4 g/dl (14.0-18.0)
[2022-09-23] MEDS ORDERED: AZITHROMYCIN 250 MG TAB PO SCH (21:00)
[2022-09-24 06:36] LABS: Hematocrit (blood only) 25.8 % (40.1-51.0); Hemoglobin 8.6 g/dl (14.0-18.0); Mean Corpuscular Hemoglobin 32.1 pg (25.0-34.0); Mean Corpuscular Hgb Conc 33.3 g/dL (32.0-36.0); Mean Corpuscular Volume 96.3 fL (80.0-100.0); Platelet Count 244 K/uL (130-400); RDW Coefficient of Variation 13.3 % (11.5-14.5); RDW Standard Deviation 47.1 fL (36.4-46.3); Red Blood Count 2.68 M/uL (4.63-6.08); White Blood Count 8.42 K/ul (4.8-10.8)
[2022-09-24 07:19] LABS: BUN Creatinine Ratio 19.3 (10-20); Calcium 8.7 mg/dl (8.5-10.1); Creatinine Clr Calc Pharmacy 45.7 ml/min; Est GFR (African American) 69.4 ml/min; Est GFR (Non-African American) 59.9 ml/min; Potassium 4.2 mmol/L (3.5-5.1)
[2022-09-24] MEDS: MULTIVITAMIN TAB PO SCH (07:54)
[2022-09-24] MEDS: ASCORBIC ACID 500 MG TAB PO SCH (07:54)
[2022-09-24] MEDS: ATORVASTATIN 40 MG TAB PO SCH (07:54)
[2022-09-24] MEDS: METOPROLOL SUCC 25MG EXT REL TAB PO SCH (07:54)
--- NOTE | 2022-09-24 09:27 | Discharge Summary ---
Date of Service September 24, 2022 Admission HPI Per Admitting Provider CHIEF COMPLAINT: Rectal bleed and diarrhea. HISTORY OF PRESENT ILLNESS: An 87-year-old male with past medical history significant for hypertension, hyperlipidemia, history of status post bioprosthetic aortic valve replacement, presents with rectal bleed. 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 He had so far four bloody bowel movements. No abdominal pain. Does not feel dizzy. No nausea, no vomiting, no fevers. Currently, resting comfortably, hemodynamically stable. No chest pain, no shortness of breath, no cough, no runny nose. Some scratchy throat. No headache, no blurred visions, no nausea. Somewhat hard of hearing. Admission Exam Per Admitting Provider GENERAL: The patient is of moderate build, not in acute distress. VITAL SIGNS: Temperature 36.6, pulse 66, respiratory rate 20, blood pressure 114/72, oxygen 96% on room air. HEENT: Pupils equal, round and reactive to light. Oral mucosa moist. NECK: No JVD, no neck masses. CARDIOVASCULAR: S1 and S2 heard. Regular rate and rhythm. No murmur, no gallop. RESPIRATORY SYSTEM: Normal AP diameter. No accessory muscle use. No wheezing, no crackles. ABDOMEN: Soft, bowel sounds present, nontender, no distention. CENTRAL NERVOUS SYSTEM: Cranial nerves II-XII grossly intact, nonfocal. EXTREMITIES: No edema, no erythema. Principal Diagnosis (1) Acute lower GI bleeding: (2) Anemia: Discharge Exam General- No acute distress Head- atraumatic Eyes- PERRL, EOMI, ENT- oropharynx clear Neck- supple, no JVD Lungs- clear to auscultation Heart- regular rhythm; no murmur Abdomen- normal bowel sounds, soft, nontender Extremities- no calf tenderness Neuro- alert, oriented x 3; PERRL, EOMI; no facial palsy; no dysarthria Skin- warm & dry Discharge Data Allergies Allergy/AdvReac Type Severity Reaction Status Date / Time No Known Allergies Allergy Unverified 09/22/22 21:26 Consultations 09/22/22 20:26 ED Decision to Admit Stat 09/23/22 08:00 Consult Gastroenterology Routine Ordered Studies Laboratory Results WBC 8.42 K/ul (4.8-10.8) 09/24/22 06:02 RBC 2.68 M/uL (4.63-6.08) L 09/24/22 06:02 Hgb 8.6 g/dl (14.0-18.0) L 09/24/22 06:02 Hct 25.8 % (40.1-51.0) L 09/24/22 06:02 MCV 96.3 fL (80.0-100.0) 09/24/22 06:02 MCH 32.1 pg (25.0-34.0) 09/24/22 06:02 MCHC 33.3 g/dL (32.0-36.0) 09/24/22 06:02 RDW Std Deviation 47.1 fL (36.4-46.3) H 09/24/22 06:02 RDW Coeff of [place] 13.3 % (11.5-14.5) 09/24/22 06:02 Plt Count 244 K/uL (130-400) 09/24/22 06:02 MPV 10.0 fL (9.4-12.4) 09/24/22 06:02 Immature Gran % (Auto) 0.1 % 09/23/22 05:37 Neut % (Auto) 69.7 % 09/23/22 05:37 Lymph % (Auto) 16.1 % 09/23/22 05:37 [place] % (Auto) 10.0 % 09/23/22 05:37 Eos % (Auto) 3.5 % 09/23/22 05:37 Baso % (Auto) 0.6 % 09/23/22 05:37 Neut # (Auto) 4.93 K/uL (1.4-6.5) 09/23/22 05:37 Lymph # (Auto) 1.14 K/uL (1.2-3.4) L 09/23/22 05:37 [place] # (Auto) 0.71 K/uL (0.24-0.82) 09/23/22 05:37 Eos # (Auto) 0.25 K/uL (0-0.50) 09/23/22 05:37 Baso # (Auto) 0.04 K/uL (0-0.2) 09/23/22 05:37 Immature Gran # (Auto) 0.01 K/uL (0.00-0.02) 09/23/22 05:37 PT 11.0 Seconds (9.0-12.0) 09/22/22 16:09 INR 1.0 (0.9-1.1) 09/22/22 16:09 APTT 25.4 Seconds (21.0-31.0) 09/22/22 16:09 PTT Ratio 0.9 09/22/22 16:09 Sodium 141 mmol/L (136-145) 09/24/22 06:02 Potassium 4.2 mmol/L (3.5-5.1) 09/24/22 06:02 Chloride 109 mmol/L (98-107) H 09/24/22 06:02 Carbon Dioxide 28 mmol/L (21-32) 09/24/22 06:02 Anion Gap 4 (3-11) 09/24/22 06:02 BUN 21 mg/dl (6-23) 09/24/22 06:02 Creatinine 1.09 mg/dl (0.6-1.4) 09/24/22 06:02 Est Cr Clr Drug Dosing 45.7 ml/min 09/24/22 06:02 Est GFR ( Amer) 69.4 ml/min 09/24/22 06:02 Est GFR (Non-Af Amer) 59.9 ml/min 09/24/22 06:02 BUN/Creatinine Ratio 19.3 (10-20) 09/24/22 06:02 Glucose 92 mg/dl (70-99(Fasting)) 09/24/22 06:02 Calcium 8.7 mg/dl (8.5-10.1) 09/24/22 06:02 Magnesium 1.9 mg/dl (1.7-2.4) 09/23/22 05:37 Total Bilirubin 0.5 mg/dl (0.2-1.0) 09/22/22 16:09 AST 13 U/L (13-39) 09/22/22 16:09 ALT 10 U/L (7-52) 09/22/22 16:09 Alkaline Phosphatase 89 U/L (34-104) 09/22/22 16:09 Troponin I High Sens 11.7 pg/ml (0-20) 09/22/22 16:09 Total Protein 6.8 gm/dl (6.0-8.3) 09/22/22 16:09 Albumin 4.2 gm/dl (3.4-5.0) 09/22/22 16:09 Globulin 2.6 gm/dl (2.5-4.0) 09/22/22 16:09 Albumin/Globulin Ratio 1.6 (0.9-2) 09/22/22 16:09 Lipase 14 U/L (11-82) 09/22/22 16:09 Urine Color Yellow 09/22/22 18:18 Urine Appearance Clear (Clear) 09/22/22 18:18 Urine pH 5.0 (4.5-7.5) 09/22/22 18:18 Ur Specific [place] 1.021 (1.000-1.030) 09/22/22 18:18 Urine Protein Negative (Negative) 09/22/22 18:18 Urine Glucose (UA) Negative (Negative) 09/22/22 18:18 Urine Ketones Trace (Negative) H 09/22/22 18:18 Urine Blood Negative (Negative) 09/22/22 18:18 Urine Nitrite Negative (Negative) 09/22/22 18:18 Urine Bilirubin Negative (Negative) 09/22/22 18:18 Urine Urobilinogen Negative (Negative) 09/22/22 18:18 Ur Leukocyte Esterase 1+ (Negative) H 09/22/22 18:18 Urine WBC (Auto) 5-10 /hpf (0-5) H 09/22/22 18:18 Urine RBC (Auto) 0-4 /hpf (0-4) 09/22/22 18:18 U Hyaline Cast (Auto) 1-5 /lpf (0-5) 09/22/22 18:18 U Epithel Cells (Auto) 20-30 /lpf (0-5) H 09/22/22 18:18 Urine Bacteria (Auto) Negative (Negative) 09/22/22 18:18 Stl C. cayetanensis PCR Not Detected (NotDetected) 09/22/22 18:18 Stool Rotavirus A PCR Not Detected (NotDetected) 09/22/22 18:18 Stl Adenov F 40/41 PCR Not Detected (NotDetected) 09/22/22 18:18 Stool Astrovirus (PCR) Not Detected (NotDetected) 09/22/22 18:18 Stool Campylobacter PCR Not Detected (NotDetected) 09/22/22 18:18 Stl C. diff Tox A/B PCR Not Detected (NotDetected) 09/22/22 18:18 Stool Cryptosporidium PCR Not Detected (NotDetected) 09/22/22 18:18 Stl E.coli Shiga Tox PCR Not Detected (NotDetected) 09/22/22 18:18 Stl Enterotoxigenic E PCR Not Detected (NotDetected) 09/22/22 18:18 Stool EPEC (PCR) DETECTED (NotDetected) A* 09/22/22 18:18 Stool EAEC (PCR) Not Detected (NotDetected) 09/22/22 18:18 Stl E. histolytica PCR Not Detected (NotDetected) 09/22/22 18:18 Stool Giardia Lamblia PCR Not Detected (NotDetected) 09/22/22 18:18 Stool Salmonella PCR Not Detected (NotDetected) 09/22/22 18:18 Stool Sapovirus (PCR) Not Detected (NotDetected) 09/22/22 18:18 Stl P. shigelloides PCR Not Detected (NotDetected) 09/22/22 18:18 Stl Shigella/EIEC PCR Not Detected (NotDetected) 09/22/22 18:18 St Y.enterocolitica PCR Not Detected (NotDetected) 09/22/22 18:18 Stool Vibrio (PCR) Not Detected (NotDetected) 09/22/22 18:18 Stl Vibrio cholerae PCR Not Detected (NotDetected) 09/22/22 18:18 Stl Norovirus GI/GII PCR Not Detected (NotDetected) 09/22/22 18:18 SARS-CoV-2, RNA, NAAT NEGATIVE (NEGATIVE) 09/22/22 18:37 Blood Type O Positive 09/22/22 18:16 Antibody Screen NEGATIVE 09/22/22 18:16 Impressions Chest X-Ray 09/22/22 18:05 XR chest 1V portable CLINICAL HISTORY: GIB TECHNIQUE: Single frontal radiograph of the chest was obtained. Comparison: None available at the time of this dictation. FINDINGS: Median sternotomy wires are unchanged. Calcified aortic knob is seen. Mediastinal and hilar densities are seen representing calcified lymph nodes. Bronchial wall thickening is noted. No evidence of pleural effusion or pneumothorax. IMPRESSION: Bronchial wall thickening is seen which may represent bronchitis. No pneumonia or other acute abnormalities. ACT 112: Negative or not required by law. Electronically signed by: Naif White M.D. 09/22/2022 8:11 PM Hospital Course (1) Acute lower GI bleeding: (2) Anemia: Patient presented with acute onset rectal bleeding. Had prior to presentation, 3 in the ER. Hemoglobin dropped from 11.6-8.9. Hemoglobin 8.6 today GI evaluation noted. Continue to hold aspirin 325mg If more bleeding, will consider inpatient colonoscopy. Pt is very anxious and ready to discharge He said that he would follow with his doctor in [place] to arrange for any procedure Stool PCR was positive for enteropathogenic E. coli. Currently on azithromycin, will continue for 3 days Check CBC in 1 week to monitor your hemoglobin case disussed with GI and ok to discharge home from GI standpoint HTN BP stable Continue metoprolol DVT px on SCD due to GI bleed Code status Full code Total Time Total Time Spent Total Time Spent (In Minutes): 35 minutes Discharge Plan Discharge Items Patient Disposition: Home - Self-Care Reason For Visit: RECTAL BLEED Discharge Diagnosis: (1) Acute lower GI bleeding: (2) Anemia: Activity: Resume your previous activity Non-emergency contact: Primary Care Provider Call non-emergency contact if: you have any medication questions Follow-up/Referrals: PCP,NO [Primary Care Provider] - Diet: Heart Healthy Addtl Attending Provider Instructions: Follow up with your primary care provider within 1 week (please call to schedule for the appointment) Follow up with your gastroenterology to arrange for outpatient colonoscopy (please call to schedule for the appointment) Check CBC in 1 week to monitor your hemoglobin Hold aspirin for now due to the rectal bleeding. Your provider will advise you when to restart the aspirin Avoid any NSAIDS (such as motrin, aleve, naproxen, ibuprofen, advil, celebrex, meloxicam, ...) due to risk of bleeding Seek urgent medical attention if gastrointestinal bleeding reoccurs Fall precaution Pending Studies at Discharge: No Stand-Alone Forms: My Smart Destinations, Smoking Cessation Medications and DC Order Prescriptions: New azithromycin 500 mg tablet 500 mg PO HS 3 Days Qty: 3 0RF Continued atorvastatin 40 mg tablet 40 mg PO DAILY metoprolol succinate 25 mg tablet extended release 24 hr 25 mg PO DAILY Rx Instructions: TAKE WITH A MEAL ascorbic acid (vitamin C) 500 mg Tablet 500 mg PO DAILY omega 9-sig-lhm-fish oil [Fish Oil] 1,000 mg (120 mg-180 mg) Capsule 1 cap PO DAILY multivitamin Tablet 1 tab PO DAILY Discontinued aspirin 325 mg Tablet 325 mg PO DAILY Discharge Orders: Discharge Order (Routine); Ordered 09/24/22 Ordered By: Ze Mata/Other Patient Handouts: E. Coli Infection, GI Bleeding Causes and Tests, Rectal Bleeding Tx, Understanding Rectal Bleeding, ED Lower GI Bleeding (Stable) Admission Data Admit Date/Time: 09/22/22 22:07 Attending Provider: Ze Bethea Admit Provider: Charlie Boland Primary Care Provider: PCP,NO Other Providers: Charlie Boland ; Vicente Taylor ; Cheryl Tierney I. Other Interventions: Discharge Summary Assessment (RN) Last Done: 09/24/22 09:33
== END 2022-09-24 10:42 | disposition home or self-care (01) ==
LOC: ED 17:44 → INTOOBSV 22:07 → 2E 22:07 → SUATTDRO 22:07 → 2E 22:37